=== PATIENT | male | born 1965 | race American Indian/Alaskan Native ===

== ENCOUNTER 2021-09-28 13:14 | Emergency (ER) | payer MEDICAID, OTHER ==
[2021-09-28 14:36] VITALS: BP 170/97
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
== END 2021-09-28 17:05 | disposition home or self-care (01) ==
LOC: ED 13:14
DX: S13.4XXA Sprain of ligaments of cervical spine, initial encounter (principal); S39.92XA Unspecified injury of lower back, initial encounter; S89.92XA Unspecified injury of left lower leg, initial encounter; I10 Essential (primary) hypertension; E11.9 Type 2 diabetes mellitus without complications; Z79.899 Other long term (current) drug therapy; V89.2XXA Person injured in unspecified motor-vehicle accident, traffic, initial encounter; Y93.89 Activity, other specified; Y92.488 Other paved roadways as the place of occurrence of the external cause; Y99.8 Other external cause status
CPT/HCPCS: 72040; 72070; 72100; 99283